=== PATIENT | male | born 1955 | race Caucasian/White ===

== ENCOUNTER 2016-10-10 06:15 | Day surgery (SDC) | payer OTHER ==
[2016-10-10] MEDS ORDERED: CELECOXIB 100 MG CAPSULE PO ONE (06:32)
[2016-10-10] MEDS ORDERED: ceFAZolin 2 GM/50 ML 50 ML IV ONE (06:33)
[2016-10-10] MEDS ORDERED: ACETAMINOPHEN 1,000 MG/100 ML 100 ML IV ONE (06:33)
[2016-10-10] MEDS ORDERED: LACTATED RINGERS 1,000 ML IV ONE (06:48)
[2016-10-10] MEDS ORDERED: LIDOCAINE-MPF 2% 5 ML VIAL IM ONE (08:00)
[2016-10-10] MEDS ORDERED: MIDAZOLAM 2 MG/2 ML VIAL IVP ONE (08:00)
[2016-10-10] MEDS ORDERED: fentaNYL 100 MCG/2 ML VIAL IVP ONE (08:00)
[2016-10-10] MEDS ORDERED: PROPOFOL 200 MG/20 ML VIAL IVP ONE (08:00)
[2016-10-10] MEDS ORDERED: BUPIVACAINE 0.25% PF 30 ML VIAL SUBQ ONE ×2 (08:04→08:47)
[2016-10-10 09:15] VITALS: BP 106/79
--- NOTE | 2016-10-10 10:48 | OPERATIVE REPORT ---
DATE OF SURGERY: 10/10/2016 00:00:00 ID: [id number] PREOPERATIVE DIAGNOSIS: Right plantar forefoot foreign body. POSTOPERATIVE DIAGNOSIS: Right forefoot granuloma versus neuroma, status post penetrating injury. NAME OF PROCEDURE: Open right plantar forefoot exploration and removal of granuloma versus neuroma. SURGEON: Commander Brent Chavse DO, [employer] ANESTHESIA PROVIDER: iDpak Swanson CRNA ANESTHESIA TECHNIQUE: MAC with local at the incision site. CIRCULATING NURSE: Leif Whitley RN CLIENT INSIGHTS CONSULTANT: JERICA Jacques and Lorna Parks START TIME: 805 END TIME: 840 INJECTED SUBSTANCES: Includes Marcaine 0.25% plain, 17 mL, at the incision site. IV FLUIDS: 1200 mL lactated Ringer's. ESTIMATED BLOOD LOSS: Less than 5 mL. PREOPERATIVE ANTIBIOTICS: Ancef 2 grams. PREOPERATIVE PREP: Hibiclens followed by ChloraPrep applied to exposed operative skin after draping. TOURNIQUET TIME: None. COMPLICATIONS: None. The patient did have left lower extremity YUE hose and foot pump in place and functioning prior to in duction of MAC. TOURNIQUET TIME: None. FINAL COUNTS: Correct. SPECIMENS SUBMITTED TO PATHOLOGY: Two specimens of soft tissue, rule out granuloma versus neuroma trixie santo lipoma. 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 The patient was counseled as far as the findings and options for operative versus nonoperative management, including the risks, benefits, alternatives and expect ations to both operative and nonoperative management. He preferred to have surgery. DESCRIPTION OF PROCEDURE: On the day of surgery, I identified the operative site to be his right plan tar forefoot. It was initialed by the operative surgeon. The patient was then taken back to the opera ting room, placed in the supine position and underwent MAC followed by placement of the tourniquet to the right upper thigh. Standard sterile draping status post Hibiclens prep. This was followed by jarad gical pause to confirm the proper patient, procedure, operative site, position, prophylactic antibiot ics, surgical initials, surgical instrumentation in accordance with the universal protocol procedure verification. Following this, ChloraPrep was applied to the exposed operative skin and allowed to dry for 3 minutes. The patient had identified his area of pain, which was marked with a sterile skin mar ker, on the plantar forefoot just proximal to the first webspace and plantar to the metatarsal heads. The incision was then marked with a sterile skin marker. This was injected with local anesthesia, fo llowed by an incision running within Aleida lines and bipolar electrocautery for hemostasis. Blunt di ssection down through the plantar fascia to what appeared as either possible EIC and/or granuloma trixie santo neuroma. There were no obvious signs of retained foreign body that was palpable nor visible. The soft tissue mass was then slowly explored and excised with bipolar electrocautery and submitted as 2 specimens. The wound was then further explored without any further evidence of retained foreign body visually or palpably. The wound was then copiously irrigated. Skin incision closed with 3-0 nylon in a horizontal mattress fashion. The wound was then injected again with 0.25% Marcaine plain. Xeroform was then applied, followed by sterile gauze, sterile Webril, and Kayode bandage. The patient tolerated t he procedure well, was then taken to the recovery room in a stable condition. His was met in the surgical waiting room and advised of the intraoperative findings, procedures performed and postop in structions. The patient has my cell phone number in case he needs to contact me after-hours or over t he weekend. He will follow up with Dr. Reynolds while I am on leave 18 October 2016 at 0800 or sooner if worse. JOB #: [id number] EXT JOB #:[id number]
== END 2016-10-10 06:16 | disposition home or self-care (01) ==
LOC: SDS 06:15
PROVIDERS: ATTEND Orthopaedic Surgery
PROC: 0JBR0ZZ Excision of Left Foot Subcutaneous Tissue and Fascia, Open Approach (ICD-10-PCS; principal; 2016-10-10 07:30)
DX: R22.41 Localized swelling, mass and lump, right lower limb (principal); G47.30 Sleep apnea, unspecified; G25.81 Restless legs syndrome; E03.9 Hypothyroidism, unspecified
CPT/HCPCS: 28039; 88305; A9270; J0131; J0690; J7120

== ENCOUNTER 2017-01-11 09:54 | Outpatient (CLI) | payer OTHER ==
--- NOTE | 2017-01-11 16:47 | MRI Report ---
EXAM: RIGHT FOREFOOT MRI WITHOUT CONTRAST EXAM DATE: 01/11/2017 10:25 AM. CLINICAL HISTORY: Right foot pain after stepping on something in the plantar forefoot in May 2016. Clinical concern for wood foreign body. Pain is in the region of the metatarsal heads. COMPARISON: None. TECHNIQUE: Multiplanar, multisequence T1-weighted and fluid-sensitive sequences of the forefoot witho ut contrast. Other: None. FINDINGS: Bones: No fractures. No marrow edema. No bone lesions. Joints: No subluxations. No effusions. The [id number] complex is unremarkable. The vi sualized plantar plates are unremarkable. Articular Cartilage: Unremarkable. Ligaments: The visualized collateral ligaments are intact. Tendons: The flexor and extensor tendons are unremarkable. Musculature: No edema or fatty atrophy. Other: No intermetatarsal bursitis. Plantar to the distal second metatarsal head, there is a focus of abnormal T2 signal with fluid in the subcutaneous tissues which measures 1.4 x 2.5 x 0.4 cm (601/11; 1001/8). It has a hypointense capsule and the fluid has mild isointensity to hyperintensity on T1-we ighted imaging. In addition, there is a band of low T1 and T2 signal in the plantar subcutaneous tiss ues over the metatarsal heads of the second through third digits (series 701, image 5). This is 4.6 c m in width and the band is 1-2 mm in thickness. Does not have angulated margins. IMPRESSION: 1. Focus of what appears to be adventitial bursitis or old hematoma plantar to the distal second meta tarsal. A foreign body is not definitely identified by MRI but ultrasound could be used for confirmat ion as small pieces of wood can be missed on MRI. 2. Linear band of low T1 and T2 signal plantar to the distal second through fourth metatarsal heads h as the appearance of scar. A foreign body would be less likely given that there is no inflammation ar ound this in the region of the third and fourth metatarsal heads. [facility] MUSCULOSKELETAL RADIOLOGY SECTION Referring Provider Line: [phone] SITE ID: [id number]
== END 2017-01-11 09:55 | disposition home or self-care (01) ==
LOC: DI 09:54
PROVIDERS: ATTEND Orthopaedic Surgery
DX: M79.671 Pain in right foot (principal)

== ENCOUNTER 2023-09-13 08:56 | Outpatient (CLI) | payer MEDICARE, OTHER ==
[~2023-09-13 08:56] MED LIST: GADOTERATE MEGLUMINE 7.5 MMOL/15 ML VIAL ONE
[2023-09-13] MEDS: GADOTERATE MEGLUMINE 7.5 MMOL/15 ML VIAL IVP ONE (10:10)
--- NOTE | 2023-09-15 11:03 | MRI Report ---
PROCEDURE: Abdomen W/WO INDICATIONS: LEFT RENAL CYST CONTRAST: clariscan 14.6 ml TECHNIQUE: Coronal ultra fast SE, axial 2D spoiled GE in- and [id number]-[id number]; axial breath-hold T2 fast SE. Dynam ic axial ultra fast GE during the administration of contrast; post-contrast coronal ultra fast GE or 2D spoiled GE with fat saturation from the hepatic dome to the iliac crests. Optional diffusion weig hted imaging and ADC may be performed. COMPARISON: None FINDINGS: Image quality: Excellent. Lung bases and heart: No pleural or pericardial effusion. Liver: No solid mass. Gallbladder and biliary tree: No radiopaque stones or wall thickening. No biliary dilation. Spleen: No splenomegaly. Pancreas: Normal size and signal. No enhancing mass or ductal dilatation. Adrenals: No adrenal nodule. Kidneys and ureters: Normal size and signal. Symmetric enhancement. Nonenhancing, partially exophytic , thin-walled, cortical medullary cyst arising from the upper pole left kidney measuring 3.3 x 3.5 x 2.9 cm. Partially exophytic, thin-walled, nonenhancing simple cyst arising posterior lateral from the left mid pole measuring 2.2 x 2.5 x 2.4 cm. Nonenhancing 1.2 cm simple cyst arising from the anterio r right midpole cortex. No solid masses. Bowel and peritoneum: No bowel distension. No pathologic free fluid. Decompressed stomach. Lymph nodes: No central or retroperitoneal adenopathy. Vessels: Normal caliber abdominal aorta, IVC, and portal vein. Bones: No aggressive osseous abnormality. Other: No significant ventral hernia. IMPRESSION: Bilateral simple renal cysts, left cysts larger than right. Reviewed by: Paris Márquez MD on 09/15/2023 11:02 AM PDT Approved by: Paris Márquez MD on 09/15/2023 11:02 AM PDT Station ID: [id number]
== END 2023-09-13 08:57 | disposition home or self-care (01) ==
LOC: DI 08:56
PROVIDERS: ATTEND Family Medicine
DX: N28.1 Cyst of kidney, acquired (principal)